=== PATIENT | male | born 2000 | race African-American/Black ===

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

== ENCOUNTER 2019-02-27 10:14 | Emergency (ER) | payer SELFPAY ==
[2019-02-27 10:15] VITALS: BP 157/69; PULSE 76; RESP 18; TEMP 36.4; O2SAT 98; BMI 25.0
--- NOTE | 2019-02-27 10:37 | ED.VISSUMM ---
- ER Visit Summary Date of Service: 02/27/19 Chief Complaint: Neck pain History of Present Illness: The patient is a 18 M M past medical or surgical history. Patient states he woke up this morning was kind of movement around waking up he felt a pop in his neck and had immediate pain. He denies any radiation to his arms or legs. No weakness or numbness. No prior neck history or surgery. No other complaints. Physical Examination: Young male no acute distress vital signs are stable afebrile. HEENT exam unremarkable. Neck he has paraspinal soft tissue tenderness and spasm on the right side of his neck. C-spine is unremarkable. Left side of his neck unremarkable. He has more pain with range of motion. No meningismus. No lymphadenopathy. Trachea is nontender. Lungs clear to auscultation. Heart regular rhythm no murmur. Abdomen soft nontender. Patient is moving all 4 extremities. There are neurovascular intact. 5 out of 5 motor strength bilaterally. Dorsi plantarflexion intact. Normal sensation. Neurologically is awake and alert. Back the thoracic lumbar spine and paraspinal soft tissues are nontender. Test Results: Dysfunction no acute abnormality. Radiologist read it as torticollis. 3 views read both by the radiologist and myself. Emergency Department Course and Treatment: Patient's history and exam is consistent with muscle spasm on the right side of his neck. He is concerned because he felt a pop and wants an x-ray to be obtained. Patient be treated with IM Toradol and p.o. Valium. Repeat exam at 11:20 AM patient is doing well. Treatment Plan: Motrin for pain and inflammation. Valium for muscle spasm. Follow-up if not improving. Disposition: Discharge Impression: Neck muscle spasm This note was generated with [employer] dictation software. It may contain incorrect words, spelling, and punctuation that were not noted in review of the chart prior to signing ED Disposition - Plan for ED Patient: Disposition: Home or Assisted Living Instructions: NECK SPASM, No Trauma Prescriptions: Diazepam [Valium] 5 mg PO 4X/DAY PRN PRN 4 Days #14 tab PRN Reason: Muscle Spasm Prescription Printed Referrals: Ramiro Aragon MD [STAFF PHYSICIAN] - 3-5 Days if not improving Additional Instructions: Muscle relaxant. Motrin for pain and inflammation. Do not drink alcohol or drive while using the Valium. Hot shower, warm bath and massage to relax the muscles in your neck. Follow-up clinic.
--- NOTE | 2019-02-27 10:40 | ED.DEP ---
ED Disposition - Plan for ED Patient: Disposition: Home or Assisted Living Instructions: NECK SPASM, No Trauma Prescriptions: Diazepam [Valium] 5 mg PO 4X/DAY PRN PRN 4 Days #14 tab PRN Reason: Muscle Spasm Prescription Printed Referrals: Ramiro Aragon MD [STAFF PHYSICIAN] - 3-5 Days if not improving Additional Instructions: Muscle relaxant. Motrin for pain and inflammation. Do not drink alcohol or drive while using the Valium. Hot shower, warm bath and massage to relax the muscles in your neck. Follow-up clinic.
[2019-02-27] MEDS: diazePAM 5 MG Tablet PO (10:41)
[2019-02-27] MEDS: Ketorolac 60 MG/2 ML Vial IM (10:41)
--- NOTE | 2019-02-27 10:46 | RAD_ITS ---
STUDY: X-RAY - CERVICAL SPINE REASON FOR EXAM: Male, 18 years old. Left cervical pain. No known injury. TECHNIQUE: 3 view(s) of the cervical spine were obtained. COMPARISON: None FINDINGS: Normal anterior atlantoaxial articulation. Normal odontoid process. There is straightening of the normal cervical lordosis. Normal vertebral bodies and endplates. Normal disc space heights. Normal visualized intervertebral neuroforamina. The soft tissue structures are unremarkable. RAD/Cerv Spine 2 or 3 Views IMPRESSION: There is straightening of the normal cervical lordosis. Left torticollis. Electronically Signed: Paul Steel, at 11:11 EDT , Service support ,
== END 2019-02-27 11:50 | disposition home or self-care (01) ==
LOC: ED 10:44
PROVIDERS: Emergency Provider Emergency Medicine
DX: M62.838 Other muscle spasm (principal)
CPT/HCPCS: 72040; 96372; 99283

== ENCOUNTER 2019-06-07 18:40 | Emergency (ER) | payer SELFPAY ==
[2019-06-07 18:42] VITALS: BP 187/95; PULSE 140; RESP 20; TEMP 36.6; O2SAT 95; BMI 25.7
--- NOTE | 2019-06-07 18:55 | ED.RN ---
when heart rate monitor begins to beep an alarm the pt begins calling it patience florence and talking to it. pt quickly becomes preoccupied then falls silent again and answers no questions
[2019-06-07] MEDS: 0.9% Normal Saline 1,000 ML 1000 ML IV (19:40)
[2019-06-07 19:43] LABS: Absolute Lymphocyte Count 1.45 X10^3/uL (0.83-4.51); Absolute Neutrophil Count 5.2 X10^3/uL (2.0-7.7); Basophil# 0.06 X10^3/uL; Basophil% 0.8 % (0-1); Eosinophil# 0.17 X10^3/uL; Eosinophils% 2.3 % (0-5); Hematocrit 45.7 % (40-54); Hemoglobin 15.4 g/dL (13.0-16.5); Lymphocyte # 1.45 X10^3/ul (4.0); Lymphocyte % 19.2 % (19-41); Mean Corp Hgb Conc 33.7 g/dL (32-36); Mean Corpuscular Hgb 27.3 pg (27.0-32.0); Mean Corpuscular Volume 80.9 fL (80-94); Mean Platelet Vol. 8.7 fl (6.2-12.0); Monocyte# 0.68 X10^3/uL; NRBC Flagged by Analyzer 0 % (0-5); Neutrophil # 5.16 X10^3/uL (2.7-7.7); Neutrophil % 68.4 % (47-70); Platelet Count 330 K/mm3 (150-450); RBC Distribution Width CV 12.4 % (11.6-14.6); RBC Distribution Width SD 36.4 fl (35.1-43.9); Red Blood Count 5.65 M/mm3 (4.6-6.2); White Blood Count 7.5 K/mm3 (4.4-11.0)
[2019-06-07 20:09] LABS: Anion Gap 8 (5-15); BUN 17 mg/dL (7-18); BUN/Creat Ratio 11.6 RATIO (10-20); Calcium,Total 8.9 mg/dL (8.5-10.1); Chloride 108 mmol/L (98-107); Creatinine, Serum 1.46 mg/dL (0.70-1.30); EST Glomerular Filtration Rate 65 mL/min (>60); Est Glom Filt Rate - Afr Amer 78 mL/min (>60); Estimated Creatinine Clearance 87.85 ml/min; Glucose 105 mg/dL (74-106); Sodium Level 140 mmol/L (136-145)
[2019-06-07] MEDS: 0.9% Normal Saline 1,000 ML 999 ML IV (20:30)
[2019-06-07 21:43] VITALS: BP 170/95; PULSE 108; RESP 16; O2SAT 100
[2019-06-07] MEDS: 0.9% Normal Saline 1,000 ML 150 ML IV (21:44)
[2019-06-07 22:34] LABS: Amphetamine Urine VISTA NEGATIVE (<1000 ng/mL); Barbiturate Urine VISTA NEGATIVE (< 200 ng/mL); Benzodiazepine Urine VISTA NEGATIVE (< 200 ng/mL); Cocaine Urine VISTA NEGATIVE (< 300 ng/mL); Ecstacy Urine VISTA NEGATIVE (< 500 ng/mL); Methadone Urine VISTA NEGATIVE (< 300 ng/mL); PCP Urine VISTA NEGATIVE (< 25 ng/mL); THC Urine VISTA POSITIVE (< 50 ng/mL); Vista UDS pH Range 6
[2019-06-07 23:21] VITALS: BP 168/95; PULSE 121; RESP 17; O2SAT 100
--- NOTE | 2019-06-07 23:30 | ED.RN ---
2049 pt run out of bed to the [facility] entrance where police and staff kept the patient from going outside and he was escorted back to his room where dr. duarte assessed the patient and he was placed in 4 point restraints at 2099.
--- NOTE | 2019-06-07 23:35 | ED.RN ---
previous note was signed by liam conner added under wrong nurse. it was written by miles Johnson rn.
[2019-06-08] VITALS (10 sets, daily range): BP systolic 133–159; BP diastolic 68–86; PULSE 66–109; RESP 14–18; O2SAT 96–100
--- NOTE | 2019-06-08 00:30 | ED.RN ---
restraints d/c at this time
--- NOTE | 2019-06-08 01:32 | ED.DCSUM_ITS ---
History of Present Illness Chief Complaint: Mental Health Detail of Chief Complaint: Drug intoxication Informant: Patient, Electrical Engineering Technologist Narrative: Patient is brought in via EMS. They state the patient was found running through the [employer]. They state that he is on an acid trip. Patient is intermittently laughing inappropriately. He is not answering questions. On review of records patient has been admitted to the hospital twice in the past with polysubstance abuse and similar presentations. - Past Medical History (1) Psychotic disorder due to psychoactive substance Status: Resolved (2) Rhabdomyolysis Status: Resolved Past Medical History - Allergies and Home Meds Allergies/Adverse Reactions: Allergies No Known Allergies Allergy (Verified 06/07/19 18:47) Primary Care Physician: Care Physician,No Primary [Primary Care Provider] - Prior records reviewed: Yes Surgical History: no surgical history Smoking Status: Current every day smoker Drugs: Marijuana, - - Acid - Family History Maternal Family History: Reports: No pertinent history Review of Systems ROS: Unable to Obtain Physical Exam Vital Signs/Narrative: Vital Signs Pulse Resp BP Pulse Ox 06/08/19 01:00 109 H 18 135/83 H 96 06/07/19 23:21 121 H 17 168/95 H 100 06/07/19 21:43 108 H 16 170/95 H 100 General: Well nourished, Well developed ENT: Moist mucous membranes Cardiovascular: Tachycardia Respiratory: No distress, CTA bilaterally Abdomen: Soft, Nontender Skin: Normal color Neurological: Alert, Normal Strength, Normal Sensation Psychological: Agitated Diagnostic/Tx/Re-eval Laboratory Results 06/07/19 06/07/19 06/07/19 19:36 19:36 19:36 WBC 7.5 RBC 5.65 Hgb 15.4 Hct 45.7 MCV 80.9 MCH 27.3 MCHC 33.7 RDW Std Deviation 36.4 RDW Coeff of Gayla 12.4 Plt Count 330 MPV 8.7 Immature Gran % (Auto) 0.300 Neut % (Auto) 68.4 Lymph % (Auto) 19.2 [place] % (Auto) 9.0 Eos % (Auto) 2.3 Baso % (Auto) 0.8 Absolute Neuts (auto) 5.2 Absolute Lymphs (auto) 1.45 Nucleated RBC % 0 Sodium 140 Potassium 4.0 Chloride 108 H Carbon Dioxide 24.0 Anion Gap 8 BUN 17 Creatinine 1.46 H Estim Creat Clear Calc 87.85 Est GFR (MDRD) Af Amer 78 Est GFR (MDRD) Non-Af 65 BUN/Creatinine Ratio 11.6 Glucose 105 Calcium 8.9 Urine Opiates Screen Urine Methadone Screen Ur Barbiturates Screen Ur Phencyclidine Scrn Ur Amphetamines Screen U Methamphetamin-MDMA U Benzodiazepines Scrn Urine Cocaine Screen U Cannabinoids Screen Ur Drug Screen Comment Ethyl Alcohol 4.0 06/07/19 22:08 WBC RBC Hgb Hct MCV MCH MCHC RDW Std Deviation RDW Coeff of Gayla Plt Count MPV Immature Gran % (Auto) Neut % (Auto) Lymph % (Auto) [place] % (Auto) Eos % (Auto) Baso % (Auto) Absolute Neuts (auto) Absolute Lymphs (auto) Nucleated RBC % Sodium Potassium Chloride Carbon Dioxide Anion Gap BUN Creatinine Estim Creat Clear Calc Est GFR (MDRD) Af Amer Est GFR (MDRD) Non-Af BUN/Creatinine Ratio Glucose Calcium Urine Opiates Screen NEGATIVE Urine Methadone Screen NEGATIVE Ur Barbiturates Screen NEGATIVE Ur Phencyclidine Scrn NEGATIVE Ur Amphetamines Screen NEGATIVE U Methamphetamin-MDMA NEGATIVE U Benzodiazepines Scrn NEGATIVE Urine Cocaine Screen NEGATIVE U Cannabinoids Screen POSITIVE H Ur Drug Screen Comment Ethyl Alcohol - Medical Decision Making Patient was initially placed on cardiac catheterization technologist and given IV fluids. Blood pressure and heart rate improved. He was sleeping comfortably. I was then notified by nursing staff that the patient had woken up, jumped out of bed, and ran out the door. He was brought back to his room by nursing staff. I went in to speak with the patient. When I asked him what his name was he said I am. I asked him where he lived and he said [email or web address]. I advised him that he was not able to leave the emergency room. Patient was placed in four-point leather restraints as he was not able to be redirected. At the time of 1 hour re-eval patient is resting more comfortably. He is now able to tell me his name. He states he does not remember the events of earlier today. There are 2 staff members from the [facility] now present at bedside. Patient states that he is just going to be honest and does tell me that he took marijuana and acid earlier today. Patient made statements to the staff members in the [facility] that he screwed up his probation and took the drugs as a suicide attempt. Sitter was placed in the room. Patient was seen by crisis and plan at this time is to transfer patient for psychiatric care. He is currently out of restraints. ED Disposition - Plan for ED Patient: Disposition: Psychiatric Hospital or Unit Diagnosis: Suicide gesture, Drug ingestion Referrals: Care Physician,No Primary [Primary Care Provider] -
--- NOTE | 2019-06-08 08:35 | ED.RN ---
per ed staff no behavioral issues with pt since restraints have been dc'd at 0030. pt is sleeping at this time.
--- NOTE | 2019-06-08 08:36 | ED.RN ---
Pt has had no meds except fluids this visit
--- NOTE | 2019-06-08 12:24 | CM.ED ---
SOCIAL WORK PATIENT REQUESTED ZEUS GARCÍA NOTIFIED AND BROUGHT PATIENT A BIBBRANDON. Hortencia PEDROZA MSW, WEBSPHERE ADMINISTRATOR.
--- NOTE | 2019-06-08 13:13 | ED.RN ---
PT REQUESTED BIBLE FROM STAFF, HOWEVER ONE WAS NOT ABLE TO BE LOCATED IN THE ED. HOSPITAL VALVE REPAIRER DELIVERED BIBLE TO PATIENT. PT DENIES FURTHER NEEDS AT THIS TIME.
--- NOTE | 2019-06-08 14:08 | ED.RN ---
LUNCH TRAY DELIVERED. PT RESTING IN BED READING BIBLE. SITTER PRESENT AT BEDSIDE. PT DENIES FURTHER NEEDS AT THIS TIME. AWAITING ACCEPTANCE TO [facility] F[facility].
--- NOTE | 2019-06-08 15:53 | EKG12_ITS ---
Test Reason : MENTAL HEALTH Blood Pressure : / mmHG Vent. Rate : 064 BPM Atrial Rate : 064 BPM P-R Int : 164 ms QRS Dur : 088 ms QT Int : 438 ms P-R-T Axes : 094 086 061 degrees QTc Int : 451 ms Normal sinus rhythm Normal ECG Confirmed by ZUNILDA MONAHAN ([id number]), art editor KALEIGH FELIX ([id number]) on 06/13/2019 1:04:33 PM Referred By: ANGELO Confirmed By:ZUNILDA MONAHAN
[2019-06-08 16:58] LABS: AST(SGOT) 18 U/L (15-37); Alanine Aminotransfer ALT/SGPT 14 U/L (16-61); Albumin, Serum 3.7 g/dL (3.2-5.0); Alkaline Phosphatase 67 U/L (45-117); Bilirubin, Direct 0.15 mg/dL (0.00-0.30); Globulin 3.1 g/dL (2.2-4.2); Protein, Total 6.8 g/dL (6.4-8.2)
[2019-06-08 17:16] LABS: CPK Total, Creatine Kinase 403 U/L (39-308)
[2019-06-09] VITALS (10 sets, daily range): BP systolic 116–162; BP diastolic 61–83; PULSE 60–87; RESP 15–18; TEMP 36.3–36.8; O2SAT 17–100
[2019-06-09 08:55] LABS: Anion Gap 4 (5-15); BUN 11 mg/dL (7-18); BUN/Creat Ratio 9.2 RATIO (10-20); CPK Total, Creatine Kinase 325 U/L (39-308); Calcium,Total 8.2 mg/dL (8.5-10.1); Chloride 110 mmol/L (98-107); Creatinine, Serum 1.19 mg/dL (0.70-1.30); EST Glomerular Filtration Rate 82 mL/min (>60); Est Glom Filt Rate - Afr Amer 99 mL/min (>60); Estimated Creatinine Clearance 107.78 ml/min; Glucose 90 mg/dL (74-106); Potassium 4.3 mmol/L (3.5-5.1); Sodium Level 140 mmol/L (136-145)
--- NOTE | 2019-06-09 09:42 | ED.RN ---
[facility] IS RELAYING MESSAGE TO JESENIA TO CALL WITH AN UPDATE ON PT
--- NOTE | 2019-06-09 10:18 | ED.RN ---
HAVE NOT HEARD BACK FROM JESENIA, CALLED [facility]
--- NOTE | 2019-06-09 10:34 | ED.RN ---
PER JESENIA WITH CRISIS THEY ARE WORKING ON GETTING ACCEPTANCE AT [facility] IN [facility] THE [facility] THAT DOES APPROVAL LEFT WITHOUT APPROVING HIS PACKET BUT WILL COME BACK IN AT SOME POINT TODAY'' I ASKED IF THERE WAS AN OPTION TO HAVE HIS PARENTS COME IN PHYSICALLY AND TAKE THE PT HOME; JESENIA STATED THAT ROSANA TOLD HER NO , THAT IS NOT AN OPTION. THE PARENTS ARENT COMING
--- NOTE | 2019-06-09 12:57 | ED.RN ---
MOO BA WITH CRISIS [facility] HAS ACCEPTED BUT THEY ARE REQUESTING UPDATED VITALS AND UPDATED CK LEVEL WITH DOCUMENTATION THAT THE PT IS NOT IN [facility]
== END 2019-06-09 17:07 ==
PROVIDERS: Emergency Medicine; Emergency Provider Emergency Medicine
DX: T40.7X2A Poisoning by cannabis (derivatives), intentional self-harm, initial encounter (principal); T40 Poisoning by, adverse effect of and underdosing of narcotics and psychodysleptics [hallucinogens]; R45.1 Restlessness and agitation; R00.0 Tachycardia, unspecified; Y92.9 Unspecified place or not applicable; F17.200 Nicotine dependence, unspecified, uncomplicated; Z78.1 Physical restraint status
CPT/HCPCS: 80048; 80076; 80307; 80320; 82550; 85025; 93005; 96360; 96361; 99285; J7030; A4216; G0480